=== PATIENT | female | born 1980 | race Caucasian/White ===

== ENCOUNTER 2018-02-28 08:13 | Day surgery (SDC) | payer OTHER ==
[2018-02-28] MEDS ORDERED: NAPROXEN SODIU550 M1 PO (13:35)
== END 2018-02-28 14:40 | disposition home or self-care (01) ==
LOC: CIR.AMB 08:13
DX: N84.0 Polyp of corpus uteri (principal)

== ENCOUNTER 2020-03-18 10:30 | Inpatient (IN) | payer OTHER ==
[~2020-03-18] VITALS: Ht 154.9 cm; Wt 67.1 kg
[~2020-03-18 10:30] MED LIST: NAPROXEN SODIU550 M1 PO
[2020-03-25] MEDS ORDERED: MEDROXYPRO150 MG/1 M (10:25)
[2020-03-27] MEDS ORDERED: OXYC1TAB9 PO (07:29)
== END 2020-03-27 09:18 | DRG 743 ==
LOC: O/R 03-25 06:59 → OB/GYN 03-25 06:59
PROVIDERS: ADMIT Obstetrics & Gynecology Gynecology; ATTEND Obstetrics & Gynecology Gynecology
PROC: 0UT70ZZ Resection of Bilateral Fallopian Tubes, Open Approach (ICD-10-PCS; 2020-03-25)
PROC: 0UT90ZZ Resection of Uterus, Open Approach (ICD-10-PCS; principal; 2020-03-25 07:00)
DX: D25.1 Intramural leiomyoma of uterus (principal); D25.0 Submucous leiomyoma of uterus; N83.8 Other noninflammatory disorders of ovary, fallopian tube and broad ligament; N84.0 Polyp of corpus uteri; N72 Inflammatory disease of cervix uteri; Z20.828 Contact with and (suspected) exposure to other viral communicable diseases; N92.0 Excessive and frequent menstruation with regular cycle